=== PATIENT | female | born 2000 | race Caucasian/White ===

== ENCOUNTER 2021-08-19 11:23 | Outpatient (REF) | payer OTHER, SELFPAY ==
--- NOTE | ~2021-08-19 | XR_ITS ---
EXAMINATION: KNEE X-RAY CLINICAL INFORMATION: Left knee pain COMPARISON: None TECHNIQUE: Standing AP view of both knees and lateral and sunrise view of the left knee FINDINGS: Left: Bone alignment is normal. No fracture or dislocation is seen. Joint spaces are normal. There is no joint effusion. Standing AP view of the right knee is unremarkable. XR/XR knee standing BI IMPRESSION: Unremarkable exam.
--- NOTE | ~2021-08-19 | XR_ITS ---
EXAMINATION: KNEE X-RAY CLINICAL INFORMATION: Left knee pain COMPARISON: None TECHNIQUE: Standing AP view of both knees and lateral and sunrise view of the left knee FINDINGS: Left: Bone alignment is normal. No fracture or dislocation is seen. Joint spaces are normal. There is no joint effusion. Standing AP view of the right knee is unremarkable. XR/XR knee LT 2V IMPRESSION: Unremarkable exam.
== END 2021-08-19 11:24 | disposition home or self-care (01) ==
LOC: HO.HOSX 11:23
PROVIDERS: Visit Provider Physician Assistant
DX: M25.562 Pain in left knee (principal); M25.561 Pain in right knee
CPT/HCPCS: 73560; 73565

== ENCOUNTER 2021-10-09 15:13 | Outpatient (REF) | payer OTHER, SELFPAY ==
--- NOTE | ~2021-10-09 | XR_ITS ---
EXAMINATION: XR WRIST, RIGHT CLINICAL INFORMATION: Pain in the right wrist. COMPARISON: None TECHNIQUE: Three views of the right wrist. FINDINGS: The bones and soft tissues are normal. No fracture. Alignment is anatomic with normal joint spaces. No erosions or abnormal soft tissue calcifications. XR/XR wrist RT min 3V IMPRESSION: Normal right wrist.
== END 2021-10-09 15:14 | disposition home or self-care (01) ==
LOC: HO.HMGCX 15:13
PROVIDERS: PCP Hospitalist
DX: M25.531 Pain in right wrist (principal)
CPT/HCPCS: 73110

== ENCOUNTER 2022-04-16 11:06 | Emergency (ER) | payer OTHER, SELFPAY ==
[2022-04-16 11:11] VITALS: BP 150/99; PULSE 111; RESP 18; TEMP 36.8; O2SAT 99
--- NOTE | 2022-04-16 11:11 | ED_ITS ---
HPI - Allergic Reaction General Chief complaint: Skin/Abscess/Foreign Body Stated complaint: IUD removal Time Seen by Provider: 04/16/22 11:40 Source: patient Mode of arrival: ambulatory Limitations: no limitations History of Present Illness HPI narrative: 22 yo female presents to the ER for evaluation of diffuse hives all over her body that started yesterday. She states they were red, raised and extremely itchy. She took several doses of Benadryl with complete resolution of the hives today. She has never had hives like this before. She states the only thing she can think of that is new is that she got a hormonal, nonmetal IUD placed 2 days ago. She denies any pelvic pain, bleeding or vaginal discharge. complaint: hives Onset (ago): day(s) (1) Exposure: unknown Symptoms: rash and itching Severity: moderate Previous Allergic Reaction History: none Related Data Previous Rx's Medication Instructions Recorded meclizine 25 mg tablet 25 mg PO DAILY #14 tabs 03/31/22 Allergies Allergy/AdvReac Type Severity Reaction Status Date / Time No Known Allergies Allergy Verified 03/31/22 16:31 seasonal Allergy Mild itchy Uncoded 03/31/22 16:31 eyes, watery eyes. 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 Oriented X3. No acute distress. HEENT: normal inspection. no facial swelling, airway patent CVS: Normal heart rate and rhythm. Pulses normal. Respiratory: No respiratory distress. Lung CTAB, speaking in complete sentences. Skin: Skin warm and dry. Normal skin color. Normal skin turgor. No rashes. Extremities: normal inspection x4. normal ROM Neuro: Oriented X 3. No motor deficit. No sensory deficit. Course Course Course Narrative: 22 yo F presenting today with complaints of hives all over her body since yesterday. She states that she [facility] and several hours later she developed a diffuse itchy rash. She has taken benadryl, last dose this morning at 03:00AM. Denies any vaginal bleeding or abdominal pain. She has previously on hormonal control in the past, states that this was the first IUD she has had. Denies any new foods, lotions, detergents. Scant wheals noted to upper extremities, no respiratory distress, airway is patent, patient is speaking in full sentences. VSS in triage. Plan - Message sent to Dr. Gaona for recommendations. Medical Decision Making Medical Decision Making MDM Narrative: 22 yo female presenting to the ER for evaluation of transient diffuse urticara, resolved with benadryl. difficult to determine if IUD is the cause vs ideopathic vs allergic reaction. reassuring that her hives have complete resolved Dr. Gaona, difficulty to determine if due to IUD, plan to leave IUD in place for now, monitor and if recurrs discuss removal comfortable d/c home. remains hive free Differential Diagnosis Differential Diagnoses: The differential diagnosis associated with the presentation includes acute ideopathic urticaria, allergic reaction, atopic dermatitis, less likely cellulitis Consult Healthcare Provider Management of the patient was discussed with: Warehouse Processor Dr. Gaona External Record Review External record reviewed: Prior outpatient labs Prescription Management I considered prescription management with: Other (prednisone) not prescribed given complete resolution with benadryl Critical Care Time Critical Care Time Critical Care Time: No Discharge Plan Discharge Clinical Impression: Urticaria, idiopathic Patient Disposition: Home, Self-Care Instructions: Urticaria (ED), Acute Rash (ED) Additional Instructions: It is unclear if you developed this reaction from the IUD or another exposure. Continue taking benadryl as directed as needed. If you develop this rash again, you may need to have this IUD removed. You may follow up with Dr. Gaona, call the office for an appointment. If you develop new or worsening symptoms call 911 or come back to the ER for further evaluation. Prescriptions: No Action meclizine 25 mg tablet 25 mg PO DAILY Qty: 14 0RF Referrals: Manohar Gaona MD [Physician] - Interventions: ED Discharge Assessment Last Done: 04/16/22 11:48 Discharge Date/Time: 04/16/22 11:48
== END 2022-04-16 11:48 | disposition home or self-care (01) ==
LOC: HO.ED 11:45
PROVIDERS: Emergency Provider Emergency Medicine; PCP Hospitalist
DX: L50.1 Idiopathic urticaria (principal)
CPT/HCPCS: 99282

== ENCOUNTER 2022-07-26 12:07 | Outpatient (REF) | payer OTHER, SELFPAY ==
[2022-07-26 14:26] LABS: HCG Quantitative 8963 mIU/mL
== END 2022-07-26 12:08 | disposition home or self-care (01) ==
LOC: HO.HMGCLDS 12:07
PROVIDERS: PCP Hospitalist; Visit Provider Internal Medicine
DX: N91.1 Secondary amenorrhea (principal)
CPT/HCPCS: 36415; 84702

== ENCOUNTER 2022-08-26 08:17 | Outpatient (AMB) | payer OTHER, SELFPAY ==
--- NOTE | 2022-08-26 08:20 | MHC.PC.OV ---
Vital Signs 08/26/22 08:27 Height 5 ft 4 in Weight 175 lb BMI 30.0 BP 98/62 Blood Pressure Location Rt brachial Position Sitting Respiration 15 Pulse 68 Pulse Source Pulse Oximeter Temp 98.9 F Temp Source Temporal Artery Scan Pulse Oximetry (%) 99 Oxygen Delivery Method Room Air Intake Visit Reasons: CPE Intake Note: Patient presents today for a physical. 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 Medication List - Last Reconciled 08/26/22 by Danae Mojica CNP No Known Home Meds Tobacco use date assessed: 08/05/22 Dental Screening Dental Screen Date: 08/26/22 Did you have a dental visit in the last 12 months?: Yes Did you have a dental problem in the last 6 months where you did not have access to dental care?: No Was dental information given to patient?: Patient has dentist HPI HPI Comments History of Present Illness Details 22-year-old female presents for a complete physical exam. No significant past medical history. Denies acute symptoms. She forgot to get her fasting blood work done. She had an IUD and became . She recently had an in the 2nd trimester. She notes that she has an appointment to establish with [facility] gynecology next month. The plan is to perform a Pap smear test and insert a copper IUD. 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 Ulices Glass, Brigette Vazquez, Nir Andrews and colleagues, with an educational melissa from [employer]. Review of Systems Const Details: Denies chills, Denies fatigue, Denies fever(s), Denies headache(s) and Denies weakness HEENT Denies change in vision, Denies dizziness, Denies headache(s), Denies hearing loss, Denies nasal congestion, Denies sinus pain, Denies sinus pressure and Denies sore throat Card Denies chest pain, Denies lightheadedness, Denies dyspnea and Denies other (palpitations) Resp Denies cough, Denies dyspnea and Denies wheezing GI Denies abdominal pain, Denies melena, Denies hematochezia, Denies change in bowel habits, Denies dyspepsia and Denies nausea Denies hematuria and Denies dysuria Musc Denies abnormal gait, Denies myalgias, Denies arthralgias, Denies numbness and Denies tingling Skin/Breast Denies rash, Denies unusual bruising and Denies wounds Neuro Denies abnormal gait, Denies dizziness, Denies headache(s), Denies memory loss, Denies numbness, Denies Sensory deficit (Neuro), Denies tingling and Denies weakness Psych Denies anxiety, Denies depression and Denies memory loss Endo Denies cold intolerance, Denies fatigue, Denies heat intolerance, Denies polydipsia and Denies polyuria Santy/Lymph Denies easy bleeding and Denies easy bruising Aller/Immun Denies wheezing Physical exam (Primary Care) Vital Signs: Last Vital Signs Temp 98.9 F 08/26/22 08:27 Pulse 68 08/26/22 08:27 Resp 15 08/26/22 08:27 BP 98/62 08/26/22 08:27 Pulse Ox 99 08/26/22 08:27 Oxygen Delivery Method Room Air 08/26/22 08:27 BMI result Body Mass Index 30.0 Tobacco/Smoking Status: Tobacco use Status Tobacco use date assessed 08/05/22 08/26/22 08:21 Patient Tobacco Use Status Former Tobacco user 08/26/22 08:35 e-Cigarette/Vaping Use Currently Using 08/26/22 08:35 Const Other: General: no acute distress, well developed, alert and awake Nutritional Appearance: well nourished Orientation/consciousness: patient oriented x3 [facility] Head: Yes normocephalic and Yes atraumatic Ears: hearing grossly normal bilaterally and TM's normal bilaterally General nose exam: Normal external nose present and Normal nares present Mouth: Normal oral and palatal mucosa present and moist mucous membranes Teeth and gingiva: dentition normal Throat: Yes oropharynx normal Eyes Pupils: Equal, round and reactive pupils present and Pupil accommodation reflex normal EOM: EOMs intact bilaterally Neck Neck: Yes normal visual inspection, Yes no lymphadenopathy and Yes trachea midline Thyroid: Thyroid normal Carotids: no bruits Lymphatic: no lymphadenopathy noted Chest Chest palpation & inspection: normal inspection of the chest Resp Effort & Inspection: normal respiratory effort Auscultation: clear to auscultation bilaterally Cardio Rate: regular rate Rhythm: regular rhythm Heart sounds: S1 normal heart sound present, S2 normal heart sound present, no gallops, no murmurs and no rubs Bruits: no abdominal aortic bruits and no carotid bruits GI Palpation (GI): No Abdominal aortic bruit present, Soft to palpation, nontender, No hepatosplenomegaly present and No Rebound tenderness present Auscultation: normal bowel sounds General: Yes no CVA tenderness Back/Spine/Pelvis Back: no CVA tenderness Cervical Spine: cervical ROM normal and No Cervical spine tenderness Thoracic/Lumbar Spine: thoraco-lumbar ROM normal, No pain with thoraco-lumbar ROM, No thoracic spinal tenderness and No lumbar spinal tenderness Skin General: warm and dry. Normal skin color. Normal skin turgor Lesions: no lesions Rashes: no rashes Trauma: no lacerations or abrasions Wounds: no wounds Nails: normal Neuro General: patient oriented x3, gait normal and CN's II-XI intact bilaterally Cranial nerves: Yes Equal, round and reactive pupils present Cognition (Neuro): normal cognition Gait exam (Neuro): Normal gait present Motor exam (neuro): 5/5 motor strength present throughout Sensory Exam: No Sensory deficit (Neuro) Deep tendon reflexes (DTR's): Right patellar reflex intensity grade: 2+ and Left patellar reflex intensity grade: 2+ Extrem General: Yes normal to inspection, No edema and No calf tenderness Psych Appearance: grossly normal Affect: normal affect Attitude: cooperative Thought process: Normal thought process present Assessment and Plan Assessment & Plan (1) Normal physical exam: Code(s): Z00.00 - Encounter for general adult medical examination without abnormal findings Plan: No significant physical restrictions or limitations noted Encouraged to follow-up with gynecology as planned Encouraged to get her fasting blood work done Advised to schedule her next physical for a year from today Follow-up sooner with symptoms or concerns Verbalized understanding and agreed with treatment plan Coding Level of Care Code Est Pt Prev Care 18-39y([id number]) Diagnoses Normal physical exam Z00.00
[2022-08-26 08:27] VITALS: BP 98/62; PULSE 68; RESP 15; TEMP 37.2; O2SAT 99
== END 2022-08-26 09:02 | disposition home or self-care (01) ==
PROVIDERS: PCP Hospitalist; Visit Provider Nurse Practitioner Family
DX: Z00.00 Encounter for general adult medical examination without abnormal findings (principal)
CPT/HCPCS: 99395

== ENCOUNTER 2023-08-30 08:31 | Outpatient (AMB) | payer BC, SELFPAY ==
--- NOTE | 2023-08-30 08:33 | MHC.PC.OV ---
Vital Signs 08/30/23 08:39 Height 5 ft 4 in Weight 173 lb 6 oz BMI 29.8 BP 112/84 Blood Pressure Location Lt brachial Position Sitting Respiration 16 Pulse 94 Pulse Source Pulse Oximeter Temp 97.6 F Temp Source Oral Pulse Oximetry (%) 98 Oxygen Delivery Method Room Air Intake Visit Reasons: PE Intake Note: patient here for follow up Test Worker Required: No Is last menstrual period known: Yes Last menstrual period: 08/14/23 Post menopausal: No Patient : No Allergies No Known Allergies Allergy (Verified 08/30/23 08:44) seasonal Allergy (Mild, Uncoded 08/30/23 08:44) itchy eyes, watery eyes. Medication List - Last Reconciled 08/30/23 by Danae Mojica CNP No Known Home Meds Tobacco use date assessed: 08/30/23 Dental Screening Dental Screen Date: 08/30/23 Did you have a dental visit in the last 12 months?: No Did you have a dental problem in the last 6 months where you did not have access to dental care?: No Was dental information given to patient?: Patient declined (patient has a dentist) HPI HPI Comments History of Present Illness Details 23-year-old female presents for an extended physical exam She has no significant past medical history She has not on prescription medications She notes that she has been eating healthy, sleeping well, and exercising routinely She offers no complaints and denies acute symptoms at this time Former smoker. Vapes nicotine everyday. Drinks alcohol socially/occasionally. No recreational drug use She notes that her last Pap smear test was with [facility] a year ago: normal She has not seen her dentist for about a year and half She is sexually active, in a monogamous relationship, and has no concerns for STD [facility] Medical History Wrist pain, right Surgical History [place] teeth extracted Social History (Updated 08/26/22 @ 08:35 by Erica Mathew, [facility]) Housing: House Alcohol intake: current Alcohol intake frequency: a few times a month Alcohol type: beer, wine and hard liquor Patient Tobacco Use Status: Former Tobacco user e-Cigarette/Vaping Use: Currently Using Second Hand Smoke Exposure: Yes Agree to transfusion: Yes service: No Current occupational status: employed 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 1. Little interest or pleasure in doing things: not at all 2. Feeling down, depressed, or hopeless: not at all 3. Trouble falling or staying asleep, or sleeping too much: not at all 4. Feeling tired or having little energy: not at all 5. Poor appetite or overeating: not at all 6. Feeling bad about yourself - or that you are a failure or have let yourself or your family down: not at all 7. Trouble concentrating on things, such as reading the newspaper or watching television: not at all 8. Moving or speaking so slowly that other people could have noticed. Or the opposite - being so fidgety or restless that you have been moving around a lot more than usual: not at all 9. Thoughts that you would be better off or of hurting yourself in some way: not at all Total score: 0 Depression Screening Interpretation: Negative Depression Screening Done: Yes 45983 - PHQ-9 Billing: Yes Source: Developed by Drs. Ulices Glass, Brigette Vazquez, Nir Andrews and colleagues, with an educational melissa from [employer]. Thrive Questionnaire Date Thrive assessed: 08/30/23 I am a: Patient What is your living situation today?: I have a steady place to live Within the past 12 months, did the food you bought not last and you didn't have the money to get more?: Never true Within the past 12 months, did you worry whether your food would run out before you got money to buy more?: Never true Do you have trouble paying for medicines?: No Do you have trouble getting transportation to medical appointments?: No Do you have trouble paying your heating and electricity bill?: No Do you have trouble taking care of your child, family member or friend?: No Do you have trouble with day-to-day activities such as bathing, preparing meals, shopping, managing finances, etc.?: No Are you currently unemployed and looking for a job?: No Are you interested in more education?: No Please select the resources that you would like help with: None Currently or been in a relationship where the following occur: No concerns reported THRIVE Score: 0 AUDIT C Alcohol Use Questionnaire (AUDIT-C) 1. How often do you have a drink containing alcohol?: 2-4 times a month 2. How many drinks containing alcohol do you have on a typical day when you are drinking?: 1 or 2 3. How often do you have six or more drinks on one occasion?: Less than monthly (3-4 times a year) Total Score: 3 HEAVEN-7 AMB Questionnaire HEAVEN-7 Date HEAVEN - 7 assessed: 08/30/23 Feeling nervous, anxious, or on edge: 1 = Several days Not being able to stop or control worryin = Several days Worrying too much about different things: 1 = Several days Trouble relaxin = Not at all Being so restless that it is hard to sit still: 1 = Several days Becoming easily annoyed or irritable: 2 = More than half the days Feeling afraid as if something awful might happen: 0 = Not at all Total HEAVEN-7 score (0-4 normal; 5-9 mild; 10-14 moderate; 15-21 severe): 6 Source: Developed by Drs. Ulices Glass, Brigette Vazquez, Nir Andrews and colleagues, with an educational melissa from [employer]. HEAVEN-7 Assessment Billing HEAVEN-7 Assessment Tool: HEAVEN-7 Assessment 85871 Review of Systems Const Details: Denies chills, Denies fatigue, Denies fever(s), Denies headache(s) and Denies weakness HEENT Denies change in vision, Denies dizziness, Denies headache(s), Denies hearing loss, Denies nasal congestion, Denies sinus pain, Denies sinus pressure and Denies sore throat Card Denies chest pain, Denies lightheadedness, Denies dyspnea and Denies other (palpitations) Resp Denies cough, Denies dyspnea and Denies wheezing GI Denies abdominal pain, Denies melena, Denies hematochezia, Denies change in bowel habits, Denies dyspepsia and Denies nausea Denies hematuria and Denies dysuria Musc Denies abnormal gait, Denies myalgias, Denies arthralgias, Denies numbness and Denies tingling Skin/Breast Denies rash, Denies unusual bruising and Denies wounds Neuro Denies abnormal gait, Denies dizziness, Denies headache(s), Denies memory loss, Denies numbness, Denies Sensory deficit (Neuro), Denies tingling and Denies weakness Psych Denies anxiety, Denies depression and Denies memory loss Endo Denies cold intolerance, Denies fatigue, Denies heat intolerance, Denies polydipsia and Denies polyuria Santy/Lymph Denies easy bleeding and Denies easy bruising Aller/Immun Denies wheezing Physical exam (Primary Care) Vital Signs: Last Vital Signs Temp 97.6 F 08/30/23 08:39 Pulse 94 08/30/23 08:39 Resp 16 08/30/23 08:39 BP 112/84 08/30/23 08:39 Pulse Ox 98 08/30/23 08:39 Oxygen Delivery Method Room Air 08/30/23 08:39 BMI result Body Mass Index 29.8 Tobacco/Smoking Status: Tobacco use Status Tobacco use date assessed 08/30/23 08/30/23 08:39 Patient Tobacco Use Status Former Tobacco user 08/30/23 08:35 e-Cigarette/Vaping Use Currently Using 08/30/23 08:35 Depression Screening Interpretation: Negative Currently or been in a relationship where the following occur: No concerns reported Const Other: General: no acute distress, well developed, alert and awake Nutritional Appearance: well nourished Orientation/consciousness: patient oriented x3 HENMT Head: Yes normocephalic and Yes atraumatic Ears: hearing grossly normal bilaterally and TM's normal bilaterally General nose exam: Normal external nose present and Normal nares present Mouth: Normal oral and palatal mucosa present and moist mucous membranes Teeth and gingiva: dentition normal Throat: Yes oropharynx normal Eyes Pupils: Equal, round and reactive pupils present and Pupil accommodation reflex normal EOM: EOMs intact bilaterally Neck Neck: Yes normal visual inspection, Yes no lymphadenopathy and Yes trachea midline Thyroid: Thyroid normal Carotids: no bruits Lymphatic: no lymphadenopathy noted Chest Chest palpation & inspection: normal inspection of the chest Resp Effort & Inspection: normal respiratory effort Auscultation: clear to auscultation bilaterally Cardio Rate: regular rate Rhythm: regular rhythm Heart sounds: S1 normal heart sound present, S2 normal heart sound present, no gallops, no murmurs and no rubs Bruits: no abdominal aortic bruits and no carotid bruits GI Palpation (GI): No Abdominal aortic bruit present, Soft to palpation, nontender, No hepatosplenomegaly present and No Rebound tenderness present Auscultation: normal bowel sounds General: Yes no CVA tenderness Back/Spine/Pelvis Back: no CVA tenderness Cervical Spine: cervical ROM normal and No Cervical spine tenderness Thoracic/Lumbar Spine: thoraco-lumbar ROM normal, No pain with thoraco-lumbar ROM, No thoracic spinal tenderness and No lumbar spinal tenderness Skin General: warm and dry. Normal skin color. Normal skin turgor Lesions: no lesions Rashes: no rashes Trauma: no lacerations or abrasions Wounds: no wounds Nails: normal Neuro General: patient oriented x3, gait normal and CN's II-XI intact bilaterally Cranial nerves: Yes Equal, round and reactive pupils present Cognition (Neuro): normal cognition Gait exam (Neuro): Normal gait present Motor exam (neuro): 5/5 motor strength present throughout Sensory Exam: No Sensory deficit (Neuro) Deep tendon reflexes (DTR's): Right patellar reflex intensity grade: 2+ and Left patellar reflex intensity grade: 2+ Extrem General: Yes normal to inspection, No edema and No calf tenderness Psych Appearance: grossly normal Affect: normal affect Attitude: cooperative Thought process: Normal thought process present Assessment and Plan Assessment & Plan (1) Normal physical exam: Code(s): Z00.00 - Encounter for general adult medical examination without abnormal findings Plan: No significant physical restrictions or limitations noted Healthy diet and routine exercise encouraged Advised to get lab work done and schedule a telehealth visit in 2-3 weeks for labs review Return with symptoms or concerns Verbalized understanding and agreed with the treatment plan (2) Engages in vaping: Code(s): Z72.89 - Other problems related to lifestyle Plan: She vapes nicotine everyday Declines nicotine treatment for vaping and notes that she will eventually stop without treatment Instructed on the health risks and complications of vaping and encouraged to stop She may contact her PCP if she changes her mind on medication treatment for vaping Verbalized understanding and agreed with the plan (3) Laboratory tests ordered as part of a complete physical exam (CPE): Code(s): Z00.00 - Encounter for general adult medical examination without abnormal findings Plan: Fasting labs ordered as part of a complete physical exam. Advised to fast for at least 10 hours before getting labs drawn. May drink water Verbalized understanding and agreed with treatment plan. Orders: Orders Complete Blood Count no Diff Today Z00.00 - Encounter for general adult medical examination without abnormal findings Comprehensive [place]. Panel Fast Today Z00.00 - Encounter for general adult medical examination without abnormal findings Lipid Panel Today Z00.00 - Encounter for general adult medical examination without abnormal findings TSH reflex Free T4 Today Z00.00 - Encounter for general adult medical examination without abnormal findings UA CC w/rflx Micro + Cult Today Z00.00 - Encounter for general adult medical examination without abnormal findings Coding Level of Care Code Est Pt Prev Care 18-39y([id number]) Diagnoses Normal physical exam Z00.00 Engages in vaping Z72.89 Laboratory tests ordered as part of a complete physical exam (CPE) Z00.00 Additional Codes HEAVEN-7 Assessment Billing - HEAVEN-7 Assessment Tool: HEAVEN-7 Assessment 12974 ([id number])
[2023-08-30 08:39] VITALS: BP 112/84; PULSE 94; RESP 16; TEMP 36.4; O2SAT 98; BMI 29.8
== END 2023-08-30 09:00 | disposition home or self-care (01) ==
PROVIDERS: Visit Provider Nurse Practitioner Family
DX: Z00.00 Encounter for general adult medical examination without abnormal findings (principal); Z72.89 Other problems related to lifestyle
CPT/HCPCS: 99395

== ENCOUNTER 2023-08-30 09:08 | Outpatient (REF) | payer BC, SELFPAY ==
[2023-08-30 11:25] LABS: Appearance Urine Clear; Color Urine Yellow; Glucose Urine UA Negative (Negative); Leukocyte Esterase Urine Negative (Negative); Nitrite Urine Negative (Negative); PH 5.5 (5.0-9.0); Specific Gravity - Urine >= 1.030 (1.005-1.025); Urine Blood Negative (Negative); Urine Ketones Negative (Negative); Urine Protein Negative (Neg-Trace)
[2023-08-30 11:28] LABS: Hematocrit 43.7 % (37.0-47.0); Mean Corpuscular HGB Conc 34.3 g/dl (31.0-35.0); Mean Corpuscular Hemoglobin 30.7 pg (27.0-33.0); Mean Corpuscular Volume 89.4 fL (80.0-98.0); Platelet Count 292 X10*3/uL (160-400); Red Blood Count 4.89 X10*6/uL (4.20-5.50); Red Cell Distribution Width 13.2 % (11.0-16.0); White Blood Count 6.6 X10*3/uL (4.8-10.8)
[2023-08-30 12:03] LABS: Alanine Aminotransferase 25 U/L (0-31); Albumin Level 4.3 g/dL (3.5-5.0); Alkaline Phosphatase 56 U/L (39-117); Anion Gap 14 (12-20); Aspartate Amino Transferase 27 U/L (5-31); Bilirubin Total 1.9 mg/dL (0.0-1.0); Blood Urea Nitrogen 9 mg/dL (9-16); Calcium 9.3 mg/dL (8.4-10.2); Carbon Dioxide 25 mmol/L (22-29); Chloride 102 mmol/L (96-108); Cholesterol 131 mg/dL (<200); Estimated Glomerular Filt Rate > 60; Glucose Fasting 85 mg/dL (60-99); HDL Cholesterol 66 mg/dL (>40); LDL Cholesterol Calculated 54 mg/dL (<100); Sodium 137 mmol/L (135-145); Total Protein 7.6 g/dL (6.5-8.0); Triglycerides 58 mg/dL (<150)
[2023-08-30 12:04] LABS: TSH reflex Free T4 1.63 uIU/mL (0.32-4.0)
== END 2023-08-30 09:09 | disposition home or self-care (01) ==
LOC: HO.WFDLDS 09:08
PROVIDERS: Visit Provider Nurse Practitioner Family
DX: Z00.00 Encounter for general adult medical examination without abnormal findings (principal)
CPT/HCPCS: 36415; 80053; 80061; 81003; 84443; 85027

== ENCOUNTER 2023-09-26 16:36 | Outpatient (AMB) | payer BC, SELFPAY ==
--- NOTE | 2023-09-26 09:41 | MHC.PC.OV ---
Intake Visit Reasons: 2 wks telehealth labs Intake Note: patient here for 2 weeks follow up for labs. Cigar Head Pegger Required: No Is last menstrual period known: Yes Last menstrual period: 09/19/23 Post menopausal: No Patient : No Allergies No Known Allergies Allergy (Verified 09/26/23 14:32) seasonal Allergy (Mild, Uncoded 08/30/23 08:44) itchy eyes, watery eyes. Tobacco use date assessed: 08/30/23 Dental Screening Dental Screen Date: 08/30/23 HPI HPI Comments History of Present Illness Details 23-year-old female presents for telehealth visit for review of recent lab results She offers no complaints and denies acute symptoms at this time [facility] Medical History Wrist pain, right Surgical History [place] teeth extracted Social History (Updated 08/26/22 @ 08:35 by Erica Mathew, [facility]) Housing: House Alcohol intake: current Alcohol intake frequency: a few times a month Alcohol type: beer, wine and hard liquor Patient Tobacco Use Status: Former Tobacco user e-Cigarette/Vaping Use: Currently Using Second Hand Smoke Exposure: Yes Agree to transfusion: Yes Patient : No service: No Current occupational status: employed 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 Ulices Glass, Brigette Vazquez, Nir Andrews and colleagues, with an educational melissa from [employer] Review of Systems Const Details: Const Denies chills, Denies fatigue, Denies fever(s), Denies headache(s) and Denies weakness ENT Denies dizziness and Denies headache(s) Card Denies chest pain, Denies lightheadedness, Denies dyspnea and Denies other (Palpitations) Resp Denies cough, Denies dyspnea, Denies wheezing and Denies other ( shortness of breath) GI Denies abdominal pain, Denies melena, Denies hematochezia, Denies change in bowel habits, Denies dyspepsia and Denies nausea Denies hematuria and Denies dysuria Musc Denies abnormal gait, Denies myalgias, Denies arthralgias, Denies numbness and Denies tingling Skin/Breast Denies rash, Denies unusual bruising and Denies wounds Neuro Denies abnormal gait, Denies dizziness, Denies headache(s), Denies memory loss, Denies numbness, Denies Sensory deficit (Neuro), Denies tingling and Denies weakness Psych Denies anxiety, Denies depression, Denies memory loss Endo Denies cold intolerance, Denies fatigue, Denies heat intolerance, Denies polydipsia and Denies polyuria Aller/Immun Denies wheezing Physical exam (Primary Care) Tobacco/Smoking Status: Tobacco use Status Tobacco use date assessed 08/30/23 09/26/23 09:42 Patient Tobacco Use Status Former Tobacco user 09/26/23 09:42 e-Cigarette/Vaping Use Currently Using 09/26/23 09:42 Thrive Assessment: Date of Thrive Assessment Date Thrive assessed 08/30/23 09/26/23 09:42 Const Other: Telehealth visit. No physical exam Telehealth Telehealth Telehealth Platform: Telephone Location of provider rendering services: practice address Location of patient: address on file Patient Identification confirmed using: Name, : Yes Telehealth method: voice only Patient verbally consented to treatment: Yes Patient verbally consented to billing insurance company: Yes Patient informed of any privacy concerns related to visit: Yes Assessment and Plan Assessment & Plan (1) Hyperbilirubinemia: Code(s): E80.6 - Other disorders of bilirubin metabolism Plan: Recent labs reviewed with the patient; unremarkable findings except for slightly elevated bilirubin level, 1.9. Previous bilirubin level is 1.1 CBC and liver enzymes are normal Gilbert syndrome is likely Will monitor periodically Healthy diet and routine exercise encouraged Her vitamin-D level was low in 2019. Therefore, will order vitamin-D level; advised to get blood work done; will review results and make changes as needed Follow-up for an extended physical exam on or after 08/29/2024 or return sooner with symptoms or concerns Verbalized understanding and agreed with the plan Orders: Orders Vitamin D 25-OH Total Today Z00.00 - Encounter for general adult medical examination without abnormal findings Coding Level of Care Code Tele Est Pt Level 3 (04176) Diagnoses Hyperbilirubinemia E80.6 Time Spent (min) 10
== END 2023-09-26 17:09 | disposition home or self-care (01) ==
LOC: HO.HMGFM 16:36
PROVIDERS: Visit Provider Nurse Practitioner Family
DX: E80.6 Other disorders of bilirubin metabolism (principal)
CPT/HCPCS: 99441

== ENCOUNTER 2023-11-04 14:38 | Outpatient (REF) | payer BC, SELFPAY ==
[2023-11-04 16:24] LABS: Vitamin D 25-OH Total 34.9 ng/mL (>30)
[2023-11-07 10:48] LABS: TS Negative Control Passed; TS Panel A 0; TS Panel B 0; TS Positive Control Passed; TSpotTB Negative (Negative)
== END 2023-11-04 14:39 | disposition home or self-care (01) ==
LOC: HO.LAB 14:38
PROVIDERS: PCP Nurse Practitioner Family; Visit Provider Nurse Practitioner Family
DX: Z00.00 Encounter for general adult medical examination without abnormal findings (principal); Z11.1 Encounter for screening for respiratory tuberculosis
CPT/HCPCS: 36415; 82306; 86481

== ENCOUNTER 2024-10-06 09:49 | Outpatient (REF) | payer BC, SELFPAY ==
--- NOTE | ~2024-10-06 | XR_ITS ---
CLINICAL HISTORY: S99.912A - Unspecified injury of left ankle, initial encounter 3 views left ankle Comparison: None Findings: No fractures, subluxations or dislocations. Borderline widening medial clear space. Normal plafond. No osteochondral lesions. Calcaneus and subtalar joint intact. Soft tissue swelling lateral malleolus Normal pre-Achilles fat pad. No radiopaque foreign body. Impression: 1. No fractures demonstrated. Borderline widening medial clear space. Soft tissue swelling lateral malleolus. This document has been electronically signed by: Jg Yip MD on 10/06/2024 11:39:34
== END 2024-10-06 09:50 | disposition home or self-care (01) ==
LOC: HO.HMGCX 09:49
PROVIDERS: PCP Nurse Practitioner Family; Visit Provider Nurse Practitioner Family
DX: S93.402A Sprain of unspecified ligament of left ankle, initial encounter (principal); W10.8XXA Fall (on) (from) other stairs and steps, initial encounter
CPT/HCPCS: 73610

== ENCOUNTER 2024-10-06 09:49 | Outpatient (AMB) | payer BC, SELFPAY ==
--- NOTE | 2024-10-06 10:30 | AM.OFFWIN_ITS ---
Intake Vital Signs 10/06/24 11:05 Height 5 ft 4 in Weight 180 lb BMI 30.9 BP 100/70 Blood Pressure Location Lt brachial Position Sitting Respiration 16 Pulse 93 Pulse Source Pulse Oximeter Temp 98.3 F Temp Source Oral Pulse Oximetry (%) 98 Oxygen Delivery Method Room Air Intake Visit Reasons: EP LT ankle injury? Intake Note: Pt is here today c/o LT ankle injury: Missed a step on stairs at home last night Patient Tobacco Use Status: Former Tobacco user Allergies No Known Allergies Allergy (Verified 10/06/24 11:19) seasonal Allergy (Mild, Uncoded 10/06/24 10:31) itchy eyes, watery eyes. Medication List - Last Reconciled 10/06/24 by Vita Sal, [facility] ibuprofen 800 mg PO Q8H PRN HPI HPI Comments History of Present Illness Details History - The patient is a 24-year-old female pr esenting with a left ankle injury. - Incident involved a fall last night af ter missing a step. - Reports localized ankle and foot pain with significant swelling. - Self-managed with ibuprofen, ice, elev ation, and use of bandage. - Difficulty walking with pain when bear ing weight. - Taken x-ray shows no immediate fractur es, pending official read. - Concerns about work limitations in con struction setting. Review of Systems - Musculoskeletal: Reports left ankle an d foot pain with swelling. - General: Denies any other systemic sym ptoms such as fever or malaise. Results - Tests and Diagnostics: X-ray pending o fficial read, currently no apparent fractures. Discussion Notes During the visit, I discussed with the patient the likely diagnosis of an ankle sprain based on the mechanism of injury and current symptoms. I explained that sprains can often be more painful and lengthy in recovery compared to fractures due to the involvement of soft tissues. We discussed treatment through i mmobilization, prescribed the use of a laced-up ankle brace, recommended limited initial weight-bearing with assistance from crutches, and instructed on performing range of motion exercises to facilitate recovery. I detailed how the patient should alternate crutch use to offload the ankle while still promoting some degree of mobility. We reviewed the importance of continuing ice application and prescribed anti-inflammatory medication to mitigate swelling. I advised her that if symptoms do not improve or swelling persists beyond two weeks, she should consult an business process specialist. The patient was instructed on using the [employer] [facility] for accessing results and to contact us via the portal for any necessary follow-up. Patient was given time to ask questions. All questions were answered to their satisfaction. Assessment and Plan 1. Ankle Sprain, L - Left ankle sprain recently occurred, n egative initial x-ray. - Use immobilizer, prescribed ibuprofen for pain/swelling. - Ice frequently, perform range of motio n exercises. - Advised crutch use initially; follow u p in two weeks if symptoms persist. - One-week work note provided for limite d activity. - May require Ortho eval and tx. Send me ssage via portal if no improvement or worsening. Patient Instructions - Use the ankle brace during the day and crutches for initial walking. - Keep icing the ankle frequently. - Take prescribed ibuprofen three times daily with food. - Perform ankle exercises by writing the alphabet with your great toe. - Follow up through the portal if no imp rovement in two weeks. - Access your x-ray results via the [employer] [facility] when ready. Consent Patient was informed and verbally consented to the use of an ambient scribe for clinic note documentation during this visit. 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 Current occupational exposures/hazards: Yes Cognitive needs: No Hearing needs: No Vision needs: No Physical Exam Vital Signs: Last Vital Signs Temp 98.3 F 10/06/24 11:05 Pulse 93 10/06/24 11:05 Resp 16 10/06/24 11:05 BP 100/70 10/06/24 11:05 Pulse Ox 98 10/06/24 11:05 Oxygen Delivery Method Room Air 10/06/24 11:05 BMI result Body Mass Index 30.9 Extrem Left lower extremity: normal capillary refill and ankle Details: tenderness Location: of the lateral malleolus and of the anterior talofibular ligament, swelling Details: diffusely, pitting edema and abnormal ROM Details: pain with active ROM Details: with plantar flexion, with dorsiflexion, with inversion and with eversion Assessment & Plan Assessment & Plan (1) Moderate left ankle sprain: Code(s): S93.402A - Sprain of unspecified ligament of left ankle, initial encounter Qualifiers: Encounter type: initial encounter Qualified Code(s): S93.402A - Sprain of unspecified ligament of left ankle, initial encounter Plan , Orders: Orders XR ankle LT min 3V Today S99.912A - Unspecified injury of left ankle, initial encounter Medications: New ibuprofen 800 mg PO Q8H PRN 30 tabs 1RF pain Patient Instructions: Patient Instructions - Use the ankle brace during the day and crutches for initial walking. - Keep icing the ankle frequently. - Take prescribed ibuprofen three times daily with food. - Perform ankle exercises by writing the alphabet with your great toe. - Follow up through the portal if no improvement in two weeks. - Access your x-ray results via the [employer] [facility] when ready. - Out of work x 1 week Coding Level of Care Code Est Pt Level 4 (09536) Diagnoses Moderate left ankle sprain, initial encounter S93.402A Encounter type: initial encounter
[2024-10-06 11:05] VITALS: BP 100/70; PULSE 93; RESP 16; TEMP 36.8; O2SAT 98; BMI 30.9
== END 2024-10-06 11:59 | disposition home or self-care (01) ==
PROVIDERS: PCP Nurse Practitioner Family; Visit Provider Nurse Practitioner Family
DX: S93.402A Sprain of unspecified ligament of left ankle, initial encounter (principal)

== ENCOUNTER → 2024-10-06 10:49 | Outpatient (BNV) | payer BC, SELFPAY | PROVIDERS: PCP Nurse Practitioner Family; Visit Provider Radiology Diagnostic Radiology | DX: M70.872 Other soft tissue disorders related to use, overuse and pressure, left ankle and foot (principal) | CPT/HCPCS: 73610 ==

== ENCOUNTER 2024-10-12 09:00 | Outpatient (AMB) | payer BC, SELFPAY ==
--- NOTE | 2024-10-12 09:07 | A.OFFVIS_ITS ---
Vital Signs 10/12/24 09:10 Height 5 ft 4 in Weight 198 lb BMI 34.0 Intake Visit Reasons: New Pt - left ankle sprain, DOI 10/05/24 Intake Note: Malaika is a 24 year old female who presents today as a new patient for a evaluation of her left ankle sprain, DOI 10/05/24. Patient mentions she was walking up the stairs and missed a step. This caused her to fall and hurt her an kle. She was seen at the walk in clinic, where they prescribed her ibuprofen for her pain and swelling. Patient was given a ankle brace to use during the day and crutches for initial walking. She was advised to ice her ankle and perform ankle exercises by writing the alphabet with her great toe. Patient mentions that she is able to walk on the ankle now but still experiences tenderness and does not have full range of motion. Impression: 1. No fractures demonstrated. Borderline widening medial clear space. Soft tissue swelling lateral malleolus. Allergies No Known Allergies Allergy (Verified 10/12/24 09:10) seasonal Allergy (Mild, Uncoded 10/06/24 10:31) itchy eyes, watery eyes. HPI HPI New Pt - left ankle sprain, DOI 10/05/24: Details: 24-year-old female presents for initial evaluation of acute left ankle injury. She sustained a fall after missing a step on 10/05/24. She was seen at the walk- in clinic and was recommended weight-bearing with a lace-up ankle brace. X-rays of the ankle were negative for fractures. She has been wrapping her ankle with an Ra bandage and has been icing as needed. She states that she is still walking with a limp however denies pain at this point. She denies a history of ankle sprains. She states that she works out and is concerned about being off of her feet for too long. 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 Ecchymosis to the lateral ankle. Purple ecchymosis to the 2nd and 3rd Metatarsal-phalangeal joint dorsally. Neuro: Protective sensation grossly intact to the bilateral lower extremities. MSK: Moderate tenderness on palpation of the ATFL and CFL ligament. Mild tenderness on the deltoid ligament. Moderate tenderness on ankle inversion along the lateral ankle and medial ankle. No pain to the syndesmosis. Negative external rotation test. Mild tenderness on palpation along the tarsometatarsal joints from the 2nd through the 5th tarsal metatarsal joint. Negative stress abduction test. No tenderness on palpation or range of motion along the forefoot and 2nd and 3rd Metatarsal-phalangeal joint.. Results Reviewed Results Reviewed: Podiatry X-ray Read: 10/06/2024 X-ray left ankle 3 views (AP, Mortise, Lateral) reviewed by me which shows no fractures, dislocations, osteochondral defects, or gross abnormalities. Anatomic alignment of the tibiotalar joint. Bone density is within normal limits. No evidence of swelling, foreign body, or calcifications. Assessment & Plan Assessment & Plan (1) Grade 2 ankle sprain: Comment: Grade 2 left ankle sprain, lateral ankle ligaments Code(s): S93.409A - Sprain of unspecified ligament of unspecified ankle, initial encounter Category: Medical Plan: * Reviewed x-rays with the patient. * Recommended to continue rest, ice, compression, and elevation for the next 2 weeks. * Continue use of lace-up ankle brace for the next 2 weeks. * Instructed to perform range of motion and stretching exercises at home. * Referred to physical therapy for left ankle rehab. (2) Lisfranc's sprain: Comment: Left foot 2nd, 3rd, 4th tarsal-metatarsal sprains Code(s): S93.629A - Sprain of tarsometatarsal ligament of unspecified foot, initial encounter Category: Medical Plan: * Discussed possible use of a cam boot however patient states that she wears a steel toe shoes at work which she finds supporting. Notes that she currently does not have pain to her foot when walking, however she is walking with a limp due to her ankle.. * We will continue to monitor. Possible MRI in the future if pain persists. (3) Sprain of deltoid ligament of left ankle: Code(s): S93.422A - Sprain of deltoid ligament of left ankle, initial encounter Plan: left ankle, grade 1 Plan * Continue use of lace-up ankle brace. Orders: Orders PT Evaluation and Treatment Today S93.409A - Sprain of unspecified ligament of unspecified ankle, initial encounter Coding Level of Care Code New Pt Level 3 (16283) Diagnoses Grade 2 ankle sprain S93.409A Lisfranc's sprain S93.629A Sprain of deltoid ligament of left ankle S93.422A Time Spent (min) 30 Comment Interpreted x-ray
[2024-10-12 09:10] VITALS: BMI 34.0
== END 2024-10-12 09:32 | disposition home or self-care (01) ==
LOC: HO.HPODS 09:01
PROVIDERS: PCP Nurse Practitioner Family; Visit Provider Student in an Organized Health Care Education/Training Program
DX: S93.629A Sprain of tarsometatarsal ligament of unspecified foot, initial encounter (principal); S93.422A Sprain of deltoid ligament of left ankle, initial encounter
CPT/HCPCS: 99203

== ENCOUNTER 2024-10-25 14:29 | Outpatient (AMB) | payer BC, SELFPAY ==
--- NOTE | 2024-10-25 14:37 | MHC.OFFVIS ---
Vital Signs 10/25/24 14:39 Height 5 ft 4 in Weight 198 lb BMI 34.0 Intake Visit Reasons: Follow Up left ankle sprain, DOI Intake Note: Malaika Kirkland is a 24 year old female who presents to the office today for a follow up left ankle sprain. Pt was instructed to continue to use the lace up ankle brace. Pt states her ankle is improving from the last visit and she notes that she is able to walk, but when she is at work and walks on a decline it starts to hurt on the top of the left foot. Patient reports she has been doing the exercises but notices there is slight pain in the ankle. Allergies No Known Allergies Allergy (Verified 10/25/24 14:40) seasonal Allergy (Mild, Uncoded 10/06/24 10:31) itchy eyes, watery eyes. HPI HPI Follow Up left ankle sprain, DOI: Details: 24-year-old female presents for 2 week follow up evaluation of acute left ankle injury, now 3 weeks after injury. Mechanism of injury: She sustained a fall after missing a step on 10/05/24. Patient states that she is overall improving, and the swelling has mostly subsided. She still has occasional pain to the outside of her ankle when doing her range of motion exercises, which she has been doing daily. She is no longer experiencing any pain on her foot. She has been using her Velcro ankle brace anytime she leaves the house. She is still working and uses her steel toe boots. She is not exercising or working out at this time. 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 Lateral ankle ecchymosis/bruising now resolved. No ecchymosis to the distal forefoot. Neuro: Protective sensation grossly intact to the bilateral lower extremities. MSK: *No tenderness on palpation of the ATFL and CFL ligament. Mild tenderness on the deltoid ligament and ATFL on maximum ankle inversion. Negative talar tilt test, negative anterior drawer test. No pain to the syndesmosis. Negative external rotation test. No tenderness on palpation along the tarsometatarsal joints from the 2nd through the 5th tarsal metatarsal joint. Negative stress abduction test. No tenderness on palpation or range of motion along the forefoot and 2nd and 3rd Metatarsal-phalangeal joint.. Assessment & Plan Assessment & Plan (1) Grade 2 ankle sprain: Comment: Grade 2 left ankle sprain, lateral ankle ligaments Code(s): S93.409A - Sprain of unspecified ligament of unspecified ankle, initial encounter Category: Medical Plan: Patient is progressing well. Discontinue ankle brace. Patient may transition to ankle compression sleeve. She was instructed to use a sleeve when working and when increasing her daily activity. Patient was sent a new referral for physical therapy. She was recommended starting physical therapy as soon as possible in order to perform proprioception and gait balance training to speed up her recovery process and mitigate recurrence of new ankle sprains. Continue range of motion and stretching exercises. Follow up in 3 weeks. She will likely be cleared to begin lower extremity exercises to pain tolerance by that point. She was recommended to continue use of ankle compression sleeve for up to 3 months after injury while running or performing lower extremity high impact exercises. (2) Lisfranc's sprain: Comment: Left foot 2nd, 3rd, 4th tarsal-metatarsal sprains Code(s): S93.629A - Sprain of tarsometatarsal ligament of unspecified foot, initial encounter Category: Medical Qualifiers: Encounter type: subsequent encounter Laterality: left Qualified Code(s): S93.622D - Sprain of tarsometatarsal ligament of left foot, subsequent encounter Plan: Resolved Orders: Orders PT Evaluation and Treatment Today S93.409A - Sprain of unspecified ligament of unspecified ankle, initial encounter Coding Level of Care Code Est Pt Level 3 (68860) Diagnoses Grade 2 ankle sprain S93.409A Sprain of tarsometatarsal ligament of left foot, subsequent encounter S93.622D Encounter type: subsequent encounter Laterality: left Time Spent (min) 30
[2024-10-25 14:39] VITALS: BMI 34.0
== END 2024-10-25 15:00 | disposition home or self-care (01) ==
LOC: HO.HPODS 14:30
PROVIDERS: PCP Nurse Practitioner Family; Visit Provider Student in an Organized Health Care Education/Training Program
DX: S93.409A Sprain of unspecified ligament of unspecified ankle, initial encounter (principal); S93.622D Sprain of tarsometatarsal ligament of left foot, subsequent encounter
CPT/HCPCS: 99213

== ENCOUNTER 2024-11-14 15:02 | Outpatient (AMB) | payer BC, SELFPAY ==
[2024-11-14 15:10] VITALS: BMI 34.0
--- NOTE | 2024-11-14 15:10 | A.OFFVIS_ITS ---
Vital Signs 11/14/24 15:10 Height 5 ft 4 in Weight 198 lb BMI 34.0 Intake Visit Reasons: OV - Left Ankle Sprain 10/05/24 Intake Note: Malaika is a 24 year old female who presents today for a follow up of her Left Ankle Sprain DOI 10/05/2024. She injured the ankle while walking up the stairs and missed a step, resulting in a fall. At her last visit she was instructed to discontinue lace up ankle brace and transition into a compression sleeve to be worn with activity. She was given an order for physical therapy, and she has an appointment scheduled on 11/29/24. Patient reports her ankle has improved however she notes tenderness on both sides of the ankle. She currently has no concerns or questions at this time. Allergies No Known Allergies Allergy (Verified 11/14/24 15:11) seasonal Allergy (Mild, Uncoded 10/06/24 10:31) itchy eyes, watery eyes. HPI HPI OV - Left Ankle Sprain 10/05/24: Details: 24-year-old female presents for 3 week follow up evaluation of acute left ankle injury, now 6 weeks after injury. Mechanism of injury: She sustained a fall after missing a step on 10/05/24. Patient states that she is overall improving, and the swelling has mostly subsided. She is still wearing the ankle compression sleeve. She is doing [id number] exercises at home. She has not yet started physical therapy. She still experiences a 'click' to her ankle and still has some pain when she inverts her ankle. 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 Lateral ankle ecchymosis/bruising now resolved. No ecchymosis to the distal forefoot. Neuro: Protective sensation grossly intact to the bilateral lower extremities. MSK: No tenderness on palpation of the ATFL and CFL ligament. Mild tenderness on the deltoid ligament and ATFL on maximum ankle inversion. Mild pain on double heel rise. Mild pain to ankle inversion. Negative talar tilt test, negative anterior drawer test. No pain to the syndesmosis. Negative external rotation test. No tenderness on palpation along the tarsometatarsal joints from the 2nd through the 5th tarsal metatarsal joint. Negative stress abduction test. No tenderness on palpation or range of motion along the forefoot and 2nd and 3rd Metatarsal-phalangeal joint. Results Reviewed Results Reviewed: Podiatry X-ray Read: 10/06/2024 X-ray left ankle 3 views (AP, Mortise, Lateral) reviewed by me which shows no fractures, dislocations, osteochondral defects, or gross abnormalities. Anatomic alignment of the tibiotalar joint. Bone density is within normal limits. No evidence of swelling, foreign body, or calcifications. Assessment & Plan Assessment & Plan (1) Grade 2 ankle sprain: Comment: Grade 2 left ankle sprain, lateral ankle ligaments Code(s): S93.409A - Sprain of unspecified ligament of unspecified ankle, initial encounter Category: Medical Plan: * Patient is progressing well. * Discontinue ankle compression sleeve at this point. She was recommended to continue use of ankle compression sleeve for up to 3 months after injury while running or performing lower extremity high impact exercises. * Patient was given a handout to perform ankle range of motion, strengthening, and balance exercises at home. * She has a physical therapy appointment on November 29. * She was cleared to slowly increase her activity to tolerance. * Follow up in 1 month. If pain persists, recommend MRI. (2) Lisfranc's sprain: Comment: Left foot 2nd, 3rd, 4th tarsal-metatarsal sprains Code(s): S93.629A - Sprain of tarsometatarsal ligament of unspecified foot, initial encounter Category: Medical Qualifiers: Encounter type: subsequent encounter Laterality: left Qualified Code(s): S93.622D - Sprain of tarsometatarsal ligament of left foot, subsequent encounter Plan: * Resolved Coding Level of Care Code Est Pt Level 3 (55599) Diagnoses Grade 2 ankle sprain S93.409A Sprain of tarsometatarsal ligament of left foot, subsequent encounter S93.622D Encounter type: subsequent encounter Laterality: left
== END 2024-11-14 15:26 | disposition home or self-care (01) ==
LOC: HO.HPODS 15:03
PROVIDERS: PCP Nurse Practitioner Family; Visit Provider Student in an Organized Health Care Education/Training Program
DX: S93.409A Sprain of unspecified ligament of unspecified ankle, initial encounter (principal); S93.622D Sprain of tarsometatarsal ligament of left foot, subsequent encounter
CPT/HCPCS: 99213

== ENCOUNTER 2024-12-04 15:53 | Outpatient (REF) | payer BC, SELFPAY | END 2024-12-04 15:54 | disposition home or self-care (01) | LOC: HO.LAB 15:53 | PROVIDERS: PCP Nurse Practitioner Family | DX: N30.01 Acute cystitis with hematuria (principal); Z13.89 Encounter for screening for other disorder | CPT/HCPCS: 81003; 87086; 87088; 87186 ==

== ENCOUNTER 2024-12-04 15:53 | Outpatient (AMB) | payer BC, SELFPAY ==
[2024-12-04 15:55] VITALS: BP 116/80; PULSE 86; TEMP 36.5; O2SAT 96; BMI 34.8
--- NOTE | 2024-12-04 15:55 | AM.OFFWIN_ITS ---
Intake Vital Signs 12/04/24 15:55 Height 5 ft 4 in Weight 203 lb BMI 34.8 BP 116/80 Blood Pressure Location Lt brachial Position Sitting Pulse 86 Pulse Source Pulse Oximeter Temp 97.7 F Temp Source Oral Pulse Oximetry (%) 96 Oxygen Delivery Method Room Air Intake Visit Reasons: EP Possible UTI Intake Note: EP has urgency and feels burning while urinates since Tuesday last week. Patient Tobacco Use Status: Former Tobacco user Allergies No Known Allergies Allergy (Verified 12/04/24 16:08) seasonal Allergy (Mild, Uncoded 10/06/24 10:31) itchy eyes, watery eyes. HPI HPI Comments History of Present Illness Details History - The patient is a 24-year-old female pr esenting with symptoms of burning during urination and urinary urgency. - The patient reports experiencing burni ng sensation during urination and a feeling of incomplete bladder emptying for about a week. - The patient describes the symptoms as persistent, with a need to urinate frequently, approximately every 10-15 minutes, but only passing a small amount of urine each time. - The patient reports slight low back pa in, which she attributes to her impending menstrual period. - The symptoms have persisted for a week without improvement. - The patient has not reported any inter ventions or medications taken for the current symptoms. - The patient has a history of urinary t ract infections, which she describes as painful experiences. - The patient noticed a light pink drop of blood in her urine today, which p rompted her to seek medical attention. Review of Systems - Genitourinary: Reports burning sensati on during urination and urinary urgency for one week. Reports light pink hematuria today. Denies fever. - Musculoskeletal: Reports slight low ba ck pain, likely related to menstrual cycle. All systems reviewed and are unremarkable except as noted in HPI Physical Exam General: Cooperative, healthy appearing, comfortable, no acute distress and well developed Orientation: Patient oriented x3 Limitations: No limitations Head: Normal to inspection Ears: Hearing grossly normal bilaterally Face and sinus: Normal facial exam Neck: Normal visual inspection and Yes full ROM Respiratory: Normal respiratory effort and able to speak in complete sentences. Skin: No rashes or lesions noted Neuro: Patient oriented x3 [facility] Medical History Wrist pain, right Surgical History [place] teeth extracted Social History (Updated 08/26/22 @ 08:[address] 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[employer] Current occupational exposures/hazards: Yes Cognitive needs: No Hearing needs: No Vision needs: No Physical Exam Vital Signs: Last Vital Signs Temp 97.7 F 12/04/24 15:55 Pulse 86 12/04/24 15:55 BP 116/80 12/04/24 15:55 Pulse Ox 96 12/04/24 15:55 Oxygen Delivery Method Room Air 12/04/24 15:55 BMI result Body Mass Index 34.8 Results AMB Urinalysis, Automated UA Leukoctes 70 Moo/uL Last Edit by Henry Mcintosh MA on 12/04/24 16:33 1+ Henry Mcintosh 12/04/24 16:33 UA Nitrite Positive Last Edit by Henry Mcintosh MA on 12/04/24 16:33 UA Urobilinogen 0.2 mg/dL Last Edit by Henry Mcintosh MA on 12/04/24 16:33 UA Protein 0 mg/dL Last Edit by Henry Mcintosh MA on 12/04/24 16:33 UA pH 6.0 Last Edit by Henry Mcintosh MA on 12/04/24 16:33 UA Blood 200 Eren/uL Last Edit by Henry Mcintosh MA on 12/04/24 16:33 3+ Henry Mcintosh 12/04/24 16:33 UA Specific [place] 1.025 Last Edit by Henry Mcintosh MA on 12/04/24 16:3 3 UA Ketone Positive Last Edit by Henry Mcintosh MA on 12/04/24 16:33 5 Henry Mcintosh 12/04/24 16:33 UA Bilirubin 0 mg/dL Last Edit by Henry Mcintosh MA on 12/04/24 16:33 UA Glucose 0 mg/dL Last Edit by Henry Mcintosh MA on 12/04/24 16:33 Assessment & Plan Assessment & Plan (1) UTI (urinary tract infection): Code(s): N39.0 - Urinary tract infection, site not specified Qualifiers: Urinary tract infection type: acute cystitis Hematuria presence: with hematuria Qualified Code(s): N30.01 - Acute cystitis with hematuria Plan: Plan - UA with leuks ad nitrites and blood. Will treat with cefuroxime and send culture. - The patient was advised to increase fluid intake and attempt to urinate again, with instructions to inform the medical receptionist biller if successful. - Empirical treatment for urinary tract infection may be initiated based on symptoms, pending culture results. Patient was informed and verbally consented to the use of an ambient scribe for clinic note documentation during this visit. Orders: Orders Urine Culture Today N39.0 - Urinary tract infection, site not specified AMB Urinalysis Automated Today Z13.9 - Encounter for screening, unspecified Medications: New cefuroxime axetil 500 mg PO Q12H 10 tabs 0RF Coding Level of Care Code Est Pt Level 3 (55137) Diagnoses Acute cystitis with hematuria N30.01 Urinary tract infection type: acute cystitis Hematuria presence: with hematuria
== END 2024-12-04 16:46 | disposition home or self-care (01) ==
PROVIDERS: PCP Nurse Practitioner Family; Visit Provider Physician Assistant
DX: Z13.9 Encounter for screening, unspecified (principal); N30.01 Acute cystitis with hematuria